=== PATIENT | male | born 1940 | race Caucasian/White ===

== ENCOUNTER → 2021-01-25 | Outpatient (CLI) | payer MEDICARE ==
[~2021-01-25] MED LIST: AMBIEN10 M1 PO; ASPI-COR81 M1 PO; ATOXIMETIN-B1 CAP PO; COMPLEXED POTAS99 MG PO; FLOMAX0.4 MG PO; LASIX20 MG PO; LOPRESSOR25 MG PO; LOSARTAN POTASS1 TA2 PO; PRADAXA150 MG PO; TERAZOSIN HCL10 M1 PO
== END | disposition home or self-care (01) ==
LOC: COVID19 15:28
PROVIDERS: ATTEND Podiatrist Foot & Ankle Surgery
DX: Z11.52 Encounter for screening for COVID-19 (principal)

== ENCOUNTER → 2023-06-29 | Outpatient (CLI) | payer MEDICARE | END | disposition home or self-care (01) | LOC: RESCLI 00:55 | PROVIDERS: ATTEND Internal Medicine | DX: I48.91 Unspecified atrial fibrillation (principal); I10 Essential (primary) hypertension; E11.9 Type 2 diabetes mellitus without complications; N40.0 Benign prostatic hyperplasia without lower urinary tract symptoms; G47.00 Insomnia, unspecified; E55.9 Vitamin D deficiency, unspecified; E56.9 Vitamin deficiency, unspecified; R60.0 Localized edema; Z79.84 Long term (current) use of oral hypoglycemic drugs; Z79.899 Other long term (current) drug therapy ==

== ENCOUNTER 2025-01-22 12:15 | Emergency (ER) | payer MEDICARE ==
[~2025-01-22] VITALS: Ht 165.1 cm; Wt 91.6 kg
[2025-01-22] MEDS ORDERED: Tdap Vaccine 0.5 ML SYR (Adult Vaccine) IM ONE (12:35)
[2025-01-22] MEDS ORDERED: Bacitracin Zinc 14 GM TUBE T ONE (13:35)
== END 2025-01-22 15:31 | disposition home or self-care (01) ==
LOC: ED 12:15
DX: S01.01XA Laceration without foreign body of scalp, initial encounter (principal); Z79.82 Long term (current) use of aspirin; Z79.899 Other long term (current) drug therapy; Z98.890 Other specified postprocedural states; W18.39XA Other fall on same level, initial encounter; Y93.89 Activity, other specified; Y92.89 Other specified places as the place of occurrence of the external cause; Y99.8 Other external cause status